=== PATIENT | male | born 1940 | race Caucasian/White ===

== ENCOUNTER 2023-09-07 21:07 | Emergency (ER) | payer MEDICARE, OTHER ==
[2023-09-07] MEDS: Octyl 2-Cyanoacrylate 1 g/1 mL 1 APPLIC PEN ONE (21:29)
[2023-09-07] MEDS: Octyl 2-Cyanoacrylate 1 g/1 mL 1 APPLIC PEN TOP ONE (21:29)
[2023-09-07] MEDS: Lidocaine 1% 5 ML VIAL INJECT ONE (21:34)
== END 2023-09-07 21:44 | disposition home or self-care (01) ==
LOC: MW.ED 21:07
DX: S61.211A Laceration without foreign body of left index finger without damage to nail, initial encounter (principal); Z88.5 Allergy status to narcotic agent; Z79.890 Hormone replacement therapy; Z75.8 Other problems related to medical facilities and other health care; W26.8XXA Contact with other sharp object(s), not elsewhere classified, initial encounter; Y93.89 Activity, other specified
CPT/HCPCS: 12001; 99282; A9270; 99283; J3490

== ENCOUNTER 2023-09-08 19:35 | Emergency (ER) | payer MEDICARE, OTHER ==
[2023-09-08] MEDS: Octyl 2-Cyanoacrylate 1 g/1 mL 1 APPLIC PEN TOP STA (21:48)
== END 2023-09-08 21:57 | disposition home or self-care (01) ==
LOC: MW.ED 19:35
DX: S61.211D Laceration without foreign body of left index finger without damage to nail, subsequent encounter (principal); Z88.8 Allergy status to other drugs, medicaments and biological substances; Z79.890 Hormone replacement therapy; Z75.8 Other problems related to medical facilities and other health care; W26.0XXD Contact with knife, subsequent encounter
CPT/HCPCS: 12001; 99282; A9270

== ENCOUNTER 2023-09-13 07:19 | Emergency (ER) | payer MEDICARE, OTHER | END 2023-09-13 07:37 | disposition left against medical advice (07) | LOC: MW.ED 07:19 | DX: Z48.02 Encounter for removal of sutures (principal); S61.217D Laceration without foreign body of left little finger without damage to nail, subsequent encounter | CPT/HCPCS: 99281 ==